=== PATIENT | female | born 1980 | race Caucasian/White ===

== ENCOUNTER 2022-01-16 09:38 | Day surgery (SDC) | payer BC ==
[2022-01-16] MEDS ORDERED: Xylocaine-Mpf 2% 5 Ml Vial IJ ONE (09:39)
[2022-01-16] MEDS ORDERED: Decadron 4 MG INJ IV ONE (09:39)
[2022-01-16] MEDS ORDERED: BENADRYL 50 MG/ML ONE (10:49)
[2022-01-16] MEDS ORDERED: DIPRIVAN 200 MG/20 ML IV ONE (11:20)
[2022-01-16] MEDS ORDERED: Lactated Ringers 1,000 ML IV ONE (11:58)
--- NOTE | 2022-01-16 14:23 | XRAY ---
Indication: Right C2-C5 MBB. Intraoperative fluoroscopy provided for 23 seconds. 2 digital spot image submitted for interpretation demonstrates posterior needle tips projecting over the expected right C2-C5 nerve roots. Correlate with intraoperative findings/report.
--- NOTE | 2022-01-16 14:48 | XRAY ---
23 seconds of fluoroscopy was used in surgery for a right C2-C5 MBB.
== END 2022-01-16 11:50 | disposition home or self-care (01) ==
LOC: SDC-PAIN 09:38
PROVIDERS: ATTEND Psychiatry & Neurology Pain Medicine
DX: M47.812 Spondylosis without myelopathy or radiculopathy, cervical region (principal); Z79.899 Other long term (current) drug therapy
CPT/HCPCS: 64490; 64491; 64492; 72040; 77002; 84703; J1100; J1200; J2704

== ENCOUNTER 2022-02-27 07:42 | Day surgery (SDC) | payer BC ==
[2022-02-27] MEDS ORDERED: BUPIVACAINE 0.5% VIAL IJ ONE (07:43)
[2022-02-27] MEDS ORDERED: DIPRIVAN 200 MG/20 ML IV ONE (09:11)
[2022-02-27] MEDS ORDERED: Lactated Ringers 1,000 ML IV ONE (09:16)
--- NOTE | 2022-02-27 10:59 | XRAY ---
Indication: Right C2-C5 MBB. Intraoperative fluoroscopy provided for 25 seconds. 2 digital spot images submitted for interpretation demonstrates posterior needle tips projecting over the expected right C2-C5 nerve roots. Correlate with intraoperative findings/report.
--- NOTE | 2022-02-27 12:47 | XRAY ---
25 seconds of fluoroscopy was used in surgery for a right C2-C5 MBB.
== END 2022-02-27 09:42 | disposition home or self-care (01) ==
LOC: SDC-PAIN 07:42
PROVIDERS: ATTEND Psychiatry & Neurology Pain Medicine
DX: M47.812 Spondylosis without myelopathy or radiculopathy, cervical region (principal); Z79.899 Other long term (current) drug therapy
CPT/HCPCS: 64490; 64491; 64492; 72040; 77002; 84703; J2704

== ENCOUNTER 2022-04-10 11:34 | Day surgery (SDC) | payer BC ==
[2022-04-10] MEDS ORDERED: XYLOCAINE-MPF 1% 5ML SDV IJ ONE (11:35)
[2022-04-10] MEDS ORDERED: Marcaine Mpf 0.5% Vial 30 Ml IJ ONE (11:35)
[2022-04-10] MEDS ORDERED: DIPRIVAN 200 MG/20 ML IV ONE ×2 (14:29→14:38)
[2022-04-10] MEDS ORDERED: Lactated Ringers 1,000 ML IV ONE (15:40)
--- NOTE | 2022-04-10 16:43 | XRAY ---
Indication: Right C2-C5 RFA. Intraoperative fluoroscopy provided for 33 seconds. 2 digital spot images submitted for interpretation demonstrates posterior needle tips projecting over the expected right C2-C5 nerve roots. Correlate with intraoperative findings/report.
--- NOTE | 2022-04-10 16:47 | XRAY ---
33 seconds of fluoroscopy was used in surgery for a right C2-C5 RFA.
== END 2022-04-10 15:00 | disposition home or self-care (01) ==
LOC: SDC-PAIN 11:34
PROVIDERS: ATTEND Psychiatry & Neurology Pain Medicine
DX: M47.812 Spondylosis without myelopathy or radiculopathy, cervical region (principal); Z79.899 Other long term (current) drug therapy
CPT/HCPCS: 01939; 64633; 64634; 72040; 77002; 81025; J2704

== ENCOUNTER 2022-04-22 13:45 | Emergency (ER) | payer BC ==
--- NOTE | 2022-04-22 14:19 | ERPHSYRPT ---
- History of Present Illness Time Seen by Provider: 04/22/22 14:00 Source: patient Exam Limitations: no limitations Patient Subjective Stated Complaint: PT states "I took the wrong med. I took one of my friends topiramate 300 mg instead of one of my meds." Triage Nursing Assessment: Pt presented alert and oriented X 3, skin pwd Pt ambulates with an uprigth steady gait, able to speak in clear full sentences. PT in no apparent respiratory distress. Physician History: This is a 42-year-old white female patient of Dr. Parnell who accidentally took what she thought was either Topamax or gabapentin 300 mg (single pill) at 630 this morning. Since that time she has felt perioral numbness and tingling in her fingers. The symptoms have been improving but she became concerned that her symptoms may worsen. She contacted Dr. Parnell's office who told the patient to come to the emergency room to be evaluated. The patient has not had any vomiting. She denies chest pain. She denies visual changes or headache. This was purely accidental and not intentional. Timing/Duration: today Severity: mild Modifying Factors: Improves With: nothing Associated Symptoms: denies symptoms Allergies/Adverse Reactions: enoxaparin [From Lovenox] Allergy (Unknown, Verified 04/22/22 13:58) hydrocortisone [From Cortizone-10] Allergy (Unknown, Verified 04/22/22 13:58) metoclopramide [From Reglan] Allergy (Unknown, Verified 04/22/22 13:58) morphine Allergy (Unknown, Verified 04/22/22 13:58) naproxen Allergy (Unknown, Verified 04/22/22 13:58) Home Medications: Dextroamphetamine/Amphetamine [Dextroamp-Amphetamin 30 mg Tab] 30 mg PO DAILY 04/22/22 [History] Hydroxychloroquine Sulfate [Plaquenil] 200 mg PO DAILY 04/22/22 [History] Tizanidine HCl 4 mg [Zanaflex 4 MG] 4 mg PO DAILY 04/22/22 [History] Hx Tetanus, Diphtheria Vaccination/Date Given: No Hx Influenza Vaccination/Date Given: No Hx Pneumococcal Vaccination/Date Given: No Immunizations Up to Date: Yes Travel Risk - International Travel Have you traveled outside of the country in past 3 weeks: No - Coronavirus Screening Are you exhibiting any of the following symptoms?: No Close contact with a COVID-19 positive Pt in past 14-21 Days: No - Vaccine Status Have you recieved a Covid-19 vaccination: Yes Financial Services Auditor: [employer] - Vaccination Dates Date of 2cond Vaccination (if applicable): 2020 - Review of Systems Constitutional: No Symptoms Eyes: No Symptoms Ears, Nose, & Throat: No Symptoms Respiratory: No Symptoms Cardiac: No Symptoms Abdominal/Gastrointestinal: No Symptoms Genitourinary Symptoms: No Symptoms Musculoskeletal: No Symptoms Skin: No Symptoms Neurological: Parasthesia (Perioral and fingers) Psychological: No Symptoms Endocrine: No Symptoms Hematologic/Lymphatic: No Symptoms Immunological/Allergic: No Symptoms All Other Systems: Reviewed and Negative - Past Medical History Pertinent Past Medical History: Yes GI Medical History: GERD Other Medical History: autoimmune - Past Surgical History Past Surgical History: Yes Other Surgical History: ablasion in neck. acl right. 2 x achilles left. ulnar nerve on right. 2 x abdomen. nicole. right carpal tunnel - Social History Smoking Status: Never smoker Exposure to second hand smoke: No Drug Use: none Patient Lives Alone: No - Female History Hx Last Menstrual Period: iud Hx Now: No - Nursing Vital Signs Nursing Vital Signs: Initial Vital Signs Temperature 98.3 F 04/22/22 13:50 Pulse Rate 89 04/22/22 13:50 Respiratory Rate 20 04/22/22 13:50 Blood Pressure 142/90 04/22/22 13:50 O2 Sat by Pulse Oximetry 100 04/22/22 13:50 Pain Scale Pain Intensity 0 - Physical Exam General Appearance: no apparent distress, alert, anxiety, thin Eye Exam: PERRL/EOMI, eyes nml inspection Ears, Nose, Throat Exam: normal ENT inspection, moist mucous membranes Neck Exam: normal inspection, non-tender, supple, full range of motion Respiratory Exam: normal breath sounds, lungs clear, airway intact, No chest tenderness, No respiratory distress Cardiovascular Exam: regular rate/rhythm, normal heart sounds, normal peripheral pulses Gastrointestinal/Abdomen Exam: soft, normal bowel sounds, No tenderness Pelvic Exam: not done Rectal Exam: not done Back Exam: normal inspection, normal range of motion, No CVA tenderness, No vertebral tenderness Extremity Exam: normal inspection, normal range of motion, pelvis stable Neurologic Exam: alert, oriented x 3, cooperative, outreach liaison II-XII nml as tested, normal mood/affect, nml cerebellar function, nml station & gait, sensation nml Skin Exam: normal color, warm, dry Lymphatic Exam: No adenopathy SpO2 Interpretation: normal SpO2: 100 O2 Delivery: Room Air - Course Nursing assessment & vital signs reviewed: Yes - Progress Progress: improved Progress Note: 04/22/22 14:18 This patient accidentally took a single pill of a friend's medication. We contacted the [facility] and the patient is 7-1/2 hours post ingestion. Her symptoms are improving. At this point, the Poison Control Center stated that no testing or observation period is necessary. I did discuss drawing a urinalysis, urine triage, blood work and performing a CAT scan of the head on this patient. Patient states that she feels comfortable knowing that the symptoms are improving and that a single dose should not harm her. She refuses the urinalysis, blood work and a CAT scan of the head. I reassured her and we will discharge her to home. Counseled pt/family regarding: diagnosis - Departure Departure Disposition: Home Clinical Impression: Encounter for medical screening examination Condition: Stable Critical Care Time: No Referrals: BRANDI PARNELL MD [Primary Care Provider] - Follow up/PCP as directed Additional Instructions: Drink plenty of fluids. Do not ever take anyone else's prescription medication. Follow-up with your primary care provider for further management.
[2022-04-22 14:32] VITALS: BP 125/83; PULSE 90; O2SAT 99
== END 2022-04-22 14:33 | disposition home or self-care (01) ==
LOC: ED 13:45
DX: Z03.6 Encounter for observation for suspected toxic effect from ingested substance ruled out (principal); R20.2 Paresthesia of skin; Z79.899 Other long term (current) drug therapy
CPT/HCPCS: 99283

== ENCOUNTER 2022-08-14 15:14 | Day surgery (SDC) | payer BC ==
[2022-08-14] MEDS ORDERED: Decadron 4 MG INJ IV ONE (15:15)
[2022-08-14] MEDS ORDERED: LIDOCAINE HCL 2% 100 MG/5 ML IJ ONE (15:15)
[2022-08-14] MEDS ORDERED: Lactated Ringers 1,000 ML IV ONE (16:46)
[2022-08-14] MEDS ORDERED: DIPRIVAN 200 MG/20 ML IV ONE (17:16)
[2022-08-14] MEDS ORDERED: Xylocaine-Mpf 2% 5 Ml Vial ONE (17:17)
--- NOTE | 2022-08-14 18:58 | XRAY ---
Indication: Left C2-C5 MBB. Intraoperative fluoroscopy provided for 19 seconds. 2 digital spot images submitted for interpretation demonstrates posterior needle tips projecting over the expected left C2-C5 nerve roots. Correlate with intraoperative findings/report.
--- NOTE | 2022-08-15 08:55 | XRAY ---
19 seconds fluoroscopy time in surgery for left C2-C5 MBB.
== END 2022-08-14 17:40 | disposition home or self-care (01) ==
LOC: SDC-PAIN 15:14
PROVIDERS: ATTEND Psychiatry & Neurology Pain Medicine
DX: M47.812 Spondylosis without myelopathy or radiculopathy, cervical region (principal); Z79.899 Other long term (current) drug therapy
CPT/HCPCS: 64490; 64491; 64492; 72040; 77002; 81025; J1100; J2704

== ENCOUNTER 2022-09-11 08:28 | Day surgery (SDC) | payer BC ==
[2022-09-11] MEDS ORDERED: BUPIVACAINE 0.5% VIAL IJ ONE (08:29)
[2022-09-11] MEDS ORDERED: Decadron 4 MG INJ IV ONE (08:29)
[2022-09-11] MEDS ORDERED: DIPRIVAN 200 MG/20 ML IV ONE (09:54)
--- NOTE | 2022-09-11 10:27 | XRAY ---
Indication: Left C2-C5 MBB. Intraoperative fluoroscopy provided for 36 seconds. 2 digital spot image submitted for interpretation demonstrates posterior needle tips projecting over the expected left C2-C5 nerve roots. Correlate with intraoperative findings/report.
--- NOTE | 2022-09-11 10:59 | XRAY ---
36 seconds fluoroscopy time in surgery for left C2-C5 MBB.
[2022-09-11] MEDS ORDERED: Lactated Ringers 1,000 ML IV ONE (11:50)
== END 2022-09-11 10:30 | disposition home or self-care (01) ==
LOC: SDC-PAIN 08:28
PROVIDERS: ATTEND Psychiatry & Neurology Pain Medicine
DX: M47.812 Spondylosis without myelopathy or radiculopathy, cervical region (principal); Z79.899 Other long term (current) drug therapy
CPT/HCPCS: 64490; 64491; 64492; 72040; 77002; 81025; J1100; J2704

== ENCOUNTER 2022-09-25 06:48 | Day surgery (SDC) | payer BC ==
[2022-09-25] MEDS ORDERED: BUPIVACAINE 0.5% VIAL IJ ONE (06:49)
[2022-09-25] MEDS ORDERED: Xylocaine 1% Vial 30 ML PF IJ ONE (06:49)
[2022-09-25] MEDS ORDERED: DIPRIVAN 200 MG/20 ML IV ONE (08:05)
[2022-09-25] MEDS ORDERED: Lactated Ringers 1,000 ML IV ONE (10:25)
--- NOTE | 2022-09-25 19:27 | XRAY ---
Indication: Left C2-C5 RFA. Intraoperative fluoroscopy provided for 46 seconds. 4 digital spot submitted for interpretation demonstrates posterior needle tips projecting over the expected left C2-C5 nerve roots. Correlate with intraoperative findings/report.
--- NOTE | 2022-09-25 20:02 | XRAY ---
46 seconds fluoroscopy time in surgery for left C@-C4 RFA.
== END 2022-09-25 08:30 | disposition home or self-care (01) ==
LOC: SDC-PAIN 06:48
PROVIDERS: ATTEND Psychiatry & Neurology Pain Medicine
DX: M47.812 Spondylosis without myelopathy or radiculopathy, cervical region (principal); Z79.899 Other long term (current) drug therapy
CPT/HCPCS: 64633; 64634; 72040; 77002; 81025; J2001; J2704